=== PATIENT | female | born 1940 | race Caucasian/White ===

== ENCOUNTER 2018-01-10 11:26 | Emergency (ER) | payer BC ==
[2018-01-10 13:39] LABS: ADD MAN DIFF? NO
[2018-01-10 13:42] LABS: WHITE BLOOD COUNT 8.2 10^3/ul (4.8-10.8)
[2018-01-10 13:42] LABS: BASOPHIL # 0.1 10^3/ul (0.0-0.1); EOSINOPHILS # 0.1 10^3/ul (0.0-0.5); HEMOGLOBIN 12.3 g/dl (12.0-16.0); LYMPHOCYTES # 0.8 10^3/ul (0.8-2.9); LYMPHOCYTES % 9.2 % (15.0-51.0); MEAN CORPUSCULAR HEMOGLOBIN 31.4 pg (29.0-33.0); MEAN CORPUSCULAR HGB CONC 35.1 g/dl (32.0-37.0); MEAN CORPUSCULAR VOLUME 89.3 fl (82.0-101.0); MONOCYTE # 0.4 10^3/ul (0.3-0.9); NEUTROPHIL # 6.8 10^3/ul (1.6-7.5); NEUTROPHILS % 83.3 % (39.0-77.0); NUCLEATED RED BLOOD CELLS # 0.3 10^3/ul (0.0-0.0); NUCLEATED RED BLOOD CELLS% 3.1 /100WBC (0.0-0.0); PLATELET COUNT 453 10^3/UL (140-415); RED BLOOD COUNT 3.92 10^6/ul (4.20-5.40); RED CELL DISTRIBUTION WIDTH 15.1 % (11.5-14.5)
[2018-01-10 14:06] LABS: ALANINE AMINOTRANSFERASE 149 IU/L (13-69); ALBUMIN 3.9 g/dl (3.3-4.9); ALBUMIN/GLOBULIN RATIO 0.95; ANION GAP 18 (8-16); ASPARTATE AMINO TRANSFERASE 137 IU/L (15-46); BILIRUBIN,INDIRECT 0.6 mg/dl (0-1.1); BILIRUBIN,TOTAL 0.8 mg/dl (0.2-1.3); BLOOD UREA NITROGEN 5 mg/dl (7-20); CALCIUM 9.2 mg/dl (8.4-10.2); CARBON DIOXIDE 27 mmol/L (21-31); CHLORIDE 97 mmol/L (97-110); CREATININE 0.42 mg/dl (0.44-1.00); GLUCOSE 143 mg/dl (70-220); INR 0.91; LIPASE 63 U/L (23-300); POTASSIUM 3.5 mmol/L (3.5-5.1); PROTIME 12.3 Sec (11.9-14.9); SODIUM 138 mmol/L (135-144)
[2018-01-10 14:07] LABS: PARTIAL THROMBOPLASTIN TIME 35.8 Sec (25.0-35.0)
[2018-01-10 14:19] LABS: ALKALINE PHOSPHATASE 1430 IU/L (42-121)
== END 2018-01-10 16:27 | disposition home or self-care (01) ==
LOC: E/R 11:26
DX: R17 Unspecified jaundice (principal); R94.5 Abnormal results of liver function studies
CPT/HCPCS: 36415; 80053; 83690; 85025; 85610; 85730; 99283

== ENCOUNTER 2018-01-12 13:03 | Outpatient (CLI) | payer BC | END 2018-01-12 17:03 | disposition home or self-care (01) | LOC: HPC 13:03 | DX: R17 Unspecified jaundice (principal); R74.8 Abnormal levels of other serum enzymes | CPT/HCPCS: G0463 ==

== ENCOUNTER 2018-01-14 11:44 | Day surgery (SDC) | payer BC ==
[~2018-01-14 11:44] MED LIST: GLUCAGON 1 MG INJ
[2018-01-14] MEDS ORDERED: IOHEXOL 300MG/ML 30 ML BTL (14:57)
[2018-01-14] MEDS: INDOMETHACIN 50 MG SUPP PR (15:30)
[2018-01-14] MEDS ORDERED: NEOSTIGMINE 3 MG/3 ML SYRINGE (15:48)
[2018-01-14] MEDS ORDERED: LIDOCAINE 2% (SDV) 5 ML INJ (15:48)
[2018-01-14] MEDS ORDERED: ROCURONIUM 50 MG INJ (15:48)
[2018-01-14] MEDS ORDERED: PROPOFOL 20 ML (15:48)
[2018-01-14] MEDS ORDERED: GLYCOPYRROLATE 0.4 MG INJ (15:48)
[2018-01-14] MEDS ORDERED: SUCCINYLCHOLINE CHLORIDE 100 MG/5 ML SYG IV (15:48)
[2018-01-14] MEDS ORDERED: CIPROFLOXACIN 400MG/D5W 200 ML (16:13)
[2018-01-14] MEDS: ONDANSETRON 4 MG INJ IV (18:20)
[2018-01-14] MEDS ORDERED: DIPHENHYDRAMINE 50 MG INJ IV (18:30)
[2018-01-14] MEDS ORDERED: hydrALAzine 20 MG INJ IV (18:30)
[2018-01-14] MEDS ORDERED: FENTAnyl 50 MCG/ML VIAL IV ×3 (18:30)
[2018-01-14] MEDS ORDERED: LABETALOL HCL 20MG INJ IV (18:30)
[2018-01-14] MEDS ORDERED: MIDAZOLAM 1 MG/ML 2 ML INJ IV (18:30)
[2018-01-14] MEDS ORDERED: MEPERIDINE 25 MG INJ IV (18:30)
[2018-01-14] MEDS ORDERED: METOCLOPRAMIDE 10 MG INJ IV (18:30)
[2018-01-14] MEDS ORDERED: EPHEDrine SULFATE 50 MG/5 ML SYG IV (18:30)
[2018-01-14] MEDS ORDERED: OXYCODONE/ACETAMINOPHEN (5/325) TAB PO ×2 (18:30)
== END 2018-01-14 20:30 | disposition home health service (06) ==
LOC: GIL 11:44 → SDS 11:44 → GIL 20:30
DX: K83.8 Other specified diseases of biliary tract (principal); F17.200 Nicotine dependence, unspecified, uncomplicated; Z85.3 Personal history of malignant neoplasm of breast
CPT/HCPCS: 43275; 71045; 74330; 93005